=== PATIENT | female | born 1960 | race American Indian/Alaskan Native ===

== ENCOUNTER 2016-12-25 15:09 | Emergency (ER) | payer MEDICARE ==
--- NOTE | 2016-12-25 17:24 | Emergency Department Report ---
Chief Complaint: Psych Stated Complaint: SUICIDAL THOUGHTS/THROAT DRAINAGE Time Seen by Provider: 12/25/16 17:19 - HPI History of Present Illness: PT c/o post nasal drainage, sore throat, and cough x 1 week. PT also reports that she is under a lot of stress right now and she has has suicidal thoughts x 2 days. PT denies active plan. Pt states she has previous Suicide attempt and she is afraid of what she might do. PT states her children and their children have recently moved in. - ROS Review of Systems: - fever + chills + SI - Exam Physical Exam: PT is alert and appropriate but tearful at times hoarse voice noted no acute resp distress MSE screening note: Focused history and physical exam performed. Due to findings the following was ordered: labs, xr, mhe ED Disposition for MSE Condition: Stable
[2016-12-25 17:59] LABS: Basophils % (Auto) 0.8 % (0.0-1.8); Eosinophils % (Auto) 5.8 % (0.0-4.3); Hematocrit 36.3 % (30.3-42.9); Hemoglobin 11.7 gm/dl (10.1-14.3); Mean Corpuscular HGB Conc 32 % (30-34); Mean Corpuscular Hemoglobin 29 pg (28-32); Mean Corpuscular Volume 90 fl (79-97); Platelet Count 206 K/mm3 (140-440); Red Blood Count 4.02 M/mm3 (3.65-5.03); Red Cell Distribution Width 15.6 % (13.2-15.2); White Blood Count 6.3 K/mm3 (4.5-11.0)
[2016-12-25 18:05] LABS: Alanine Aminotransferase 30 units/L (7-56); Albumin 4.3 g/dL (3.9-5); Alkaline Phosphatase 94 units/L (35-129); Anion Gap 20 mmol/L; Blood Urea Nitrogen 10 mg/dL (7-17); Carbon Dioxide 27 mmol/L (22-30); Chloride 101.3 mmol/L (98-107); Glucose 102 mg/dL (65-100); Potassium 4.1 mmol/L (3.6-5.0); Sodium 144 mmol/L (137-145); Total Protein 8.4 g/dL (6.3-8.2)
[2016-12-25 19:23] LABS: Urine Drugs of Abuse Note Disclamer
[2016-12-25 19:52] LABS: Bilirubin,Urine NEG (Negative); Blood,Urine NEG (Negative); Ketones,Urine NEG (Negative); Leukocyte Esterase,Urine TR (Negative); Mucus,Urine 1+ /HPF; Nitrite,Urine NEG (Negative); Protein,Urine <15 mg/dL mg/dL (Negative); RBC,Urine < 1.0 /HPF (0.0-6.0); Urobilinogen,Urine < 2.0 mg/dL (<2.0)
[2016-12-25] MEDS ORDERED: ALUM-MAG HYDROX-SIMETH 200-200-20MG/5ML PO PRN (20:39)
[2016-12-25] MEDS ORDERED: MOTRIN PO PRN (20:39)
[2016-12-25] MEDS ORDERED: ATIVAN IM PRN (20:39)
[2016-12-25] MEDS ORDERED: LIDOCAINE VISCOUS 2% MM PRN (20:39)
[2016-12-25] MEDS ORDERED: TYLENOL PO ONE (20:40)
--- NOTE | 2016-12-25 20:42 | Emergency Department Report ---
ED General Adult HPI - General Chief complaint: Psych Stated complaint: SUICIDAL THOUGHTS/THROAT DRAINAGE Time Seen by Provider: 12/25/16 17:19 Source: patient, RN notes reviewed Mode of arrival: Ambulatory Limitations: No Limitations - History of Present Illness Initial comments: This is a 56-year-old female. She is previously unknown to me. Does not currently have a primary care doctor, and denies chronic medical conditions. The patient presents to the ER with 1 week of sore throat, cough productive of clear mucus, with no severe headache, neck pain, chest pain, abdominal pain or shortness of breath. The patient is able to eat and drink. No recent antibiotic use. No recent sick contacts. The patient also endorses suicidality. She reports many psychosocial stressors. She denies access to guns and firearms. She denies overdoses. She reports that she sees things crawling on her bedroom at night, but otherwise denies audio and visual hallucinations. Patient reports that her suicidality has resolved. -: Gradual Quality: aching Consistency: constant Improves with: rest Worsens with: eating Associated Symptoms: cough. denies: confusion, chest pain, loss of appetite, malaise, shortness of breath, syncope, weakness - Related Data Bad table Allergies Allergy/AdvReac Type Severity Reaction Status Date / Time No Known Allergies Allergy Verified 02/08/14 21:57 ED Review of Systems ROS: Stated complaint: SUICIDAL THOUGHTS/THROAT DRAINAGE Other details as noted in HPI Constitutional: denies: fever, malaise Eyes: denies: vision change ENT: throat pain, congestion Respiratory: cough Cardiovascular: denies: chest pain Gastrointestinal: denies: abdominal pain Genitourinary: denies: dysuria Musculoskeletal: denies: back pain Skin: denies: lesions Neurological: denies: headache, weakness Psychiatric: anxiety, suicidal thoughts. denies: homicidal thoughts ED Past Medical Hx - Past Medical History Previous Medical History?: Yes Hx Arthritis: Yes Hx Psychiatric Treatment: Yes (Anxiety) - Surgical History Past Surgical History?: Yes Additional Surgical History: Hysterectomy, Tubaligation - Social History Smoking Status: Never Smoker Substance Use Type: Alcohol - Medications Bad table ED Physical Exam - General Limitations: No Limitations General appearance: alert, in no apparent distress - Head Head exam: Present: atraumatic, normocephalic - Eye Eye exam: Present: normal appearance, EOMI - ENT ENT exam: Present: normal exam, normal orophraynx, mucous membranes moist, TM's normal bilaterally, normal external ear exam - Neck Neck exam: Present: normal inspection, full ROM, lymphadenopathy. Absent: tenderness, meningismus - Respiratory Respiratory exam: Present: normal lung sounds bilaterally. Absent: respiratory distress, wheezes, rales, rhonchi, stridor, chest wall tenderness, accessory muscle use, decreased breath sounds, prolonged expiratory - Cardiovascular Cardiovascular Exam: Present: regular rate, normal rhythm, normal heart sounds. Absent: bradycardia, tachycardia, irregular rhythm, systolic murmur, diastolic murmur, rubs, gallop - GI/Abdominal GI/Abdominal exam: Present: soft, normal bowel sounds. Absent: distended, tenderness, guarding, rebound, rigid, pulsatile mass - Extremities Exam Extremities exam: Present: normal inspection, full ROM, normal capillary refill. Absent: tenderness, pedal edema, joint swelling, calf tenderness - Back Exam Back exam: Present: normal inspection, full ROM. Absent: tenderness, CVA tenderness (R), CVA tenderness (L), muscle spasm, paraspinal tenderness, vertebral tenderness - Neurological Exam Neurological exam: Present: alert, oriented X3, normal gait, other (Extraocular movements intact. Tongue midline. No facial droop. Facial sensation intact to light touch in the V1, V2, V3 distribution bilaterally. 5 and 5 strength in 4 extremities.. Sensation is intact to light touch in 4 extremities.). Absent : motor sensory deficit - Psychiatric Psychiatric exam: Present: anxious - Skin Skin exam: Present: warm, dry, intact, normal color. Absent: rash ED Course Vital Signs 12/25/16 12/26/16 17:19 00:49 Temperature 99.3 F 98.3 F Pulse Rate 91 H 71 Respiratory 16 16 Rate Blood Pressure 136/99 Blood Pressure 174/104 [Left] O2 Sat by Pulse 100 100 Oximetry ED Medical Decision Making - Lab Data Result diagrams: 12/25/16 17:25 12/25/16 17:25 Vital Signs 12/25/16 17:19 Temperature 99.3 F Pulse Rate 91 H Respiratory 16 Rate Blood Pressure 136/99 O2 Sat by Pulse 100 Oximetry Lab Results 12/25/16 12/25/16 12/25/16 Range/Units 17:25 17:25 17:25 WBC 6.3 (4.5-11.0) K/mm3 RBC 4.02 (3.65-5.03) M/mm3 Hgb 11.7 (10.1-14.3) gm/dl Hct 36.3 (30.3-42.9) % MCV 90 (79-97) fl MCH 29 (28-32) pg MCHC 32 (30-34) % RDW 15.6 H (13.2-15.2) % Plt Count 206 (140-440) K/mm3 Lymph % (Auto) 31.4 (13.4-35.0) % Travis % (Auto) 10.1 H (0.0-7.3) % Eos % (Auto) 5.8 H (0.0-4.3) % Baso % (Auto) 0.8 (0.0-1.8) % Lymph # 2.0 (1.2-5.4) K/mm3 Travis # 0.6 (0.0-0.8) K/mm3 Eos # 0.4 (0.0-0.4) K/mm3 Baso # 0.1 (0.0-0.1) K/mm3 Seg Neutrophils % 51.9 (40.0-70.0) % Seg Neutrophils # 3.3 (1.8-7.7) K/mm3 Sodium (137-145) mmol/L Potassium (3.6-5.0) mmol/L Chloride (98-107) mmol/L Carbon Dioxide (22-30) mmol/L Anion Gap mmol/L BUN (7-17) mg/dL Creatinine (0.7-1.2) mg/dL Estimated GFR ml/min BUN/Creatinine Ratio % Glucose (65-100) mg/dL Calcium (8.4-10.2) mg/dL Total Bilirubin (0.1-1.2) mg/dL AST (5-40) units/L ALT (7-56) units/L Alkaline Phosphatase (35-129) units/L Total Creatine Kinase (30-135) units/L Total Protein (6.3-8.2) g/dL Albumin (3.9-5) g/dL Albumin/Globulin Ratio % Urine Color (Yellow) Urine Turbidity (Clear) Urine pH (5.0-7.0) Ur Specific [place] (1.003-1.030) Urine Protein (Negative) mg/dL Urine Glucose (UA) (Negative) mg/dL Urine Ketones (Negative) mg/dL Urine Blood (Negative) Urine Nitrite (Negative) Urine Bilirubin (Negative) Urine Urobilinogen (<2.0) mg/dL Ur Leukocyte Esterase (Negative) Urine WBC (Auto) (0.0-6.0) /HPF Urine RBC (Auto) (0.0-6.0) /HPF U Epithel Cells (Auto) (0-13.0) /HPF Urine Mucus /HPF Salicylates (2.8-20.0) mg/dL Urine Opiates Screen Urine Methadone Screen Acetaminophen < 15.0 (10.0-30.0) ug/mL Ur Barbiturates Screen Ur Phencyclidine Scrn Ur Amphetamines Screen U Benzodiazepines Scrn Urine Cocaine Screen U Marijuana (THC) Screen Drugs of Abuse Note Plasma/Serum Alcohol 0.13 H (0-0.07) gm% 12/25/16 12/25/16 12/25/16 Range/Units 17:25 17:26 17:26 WBC (4.5-11.0) K/mm3 RBC (3.65-5.03) M/mm3 Hgb (10.1-14.3) gm/dl Hct (30.3-42.9) % MCV (79-97) fl MCH (28-32) pg MCHC (30-34) % RDW (13.2-15.2) % Plt Count (140-440) K/mm3 Lymph % (Auto) (13.4-35.0) % Travis % (Auto) (0.0-7.3) % Eos % (Auto) (0.0-4.3) % Baso % (Auto) (0.0-1.8) % Lymph # (1.2-5.4) K/mm3 Travis # (0.0-0.8) K/mm3 Eos # (0.0-0.4) K/mm3 Baso # (0.0-0.1) K/mm3 Seg Neutrophils % (40.0-70.0) % Seg Neutrophils # (1.8-7.7) K/mm3 Sodium 144 (137-145) mmol/L Potassium 4.1 (3.6-5.0) mmol/L Chloride 101.3 (98-107) mmol/L Carbon Dioxide 27 (22-30) mmol/L Anion Gap 20 mmol/L BUN 10 (7-17) mg/dL Creatinine 0.8 (0.7-1.2) mg/dL Estimated GFR > 60 ml/min BUN/Creatinine Ratio 12.50 % Glucose 102 H (65-100) mg/dL Calcium 9.0 (8.4-10.2) mg/dL Total Bilirubin 0.50 (0.1-1.2) mg/dL AST 94 H (5-40) units/L ALT 30 (7-56) units/L Alkaline Phosphatase 94 (35-129) units/L Total Creatine Kinase 253 H (30-135) units/L Total Protein 8.4 H (6.3-8.2) g/dL Albumin 4.3 (3.9-5) g/dL Albumin/Globulin Ratio 1.0 % Urine Color (Yellow) Urine Turbidity (Clear) Urine pH (5.0-7.0) Ur Specific [place] (1.003-1.030) Urine Protein (Negative) mg/dL Urine Glucose (UA) (Negative) mg/dL Urine Ketones (Negative) mg/dL Urine Blood (Negative) Urine Nitrite (Negative) Urine Bilirubin (Negative) Urine Urobilinogen (<2.0) mg/dL Ur Leukocyte Esterase (Negative) Urine WBC (Auto) (0.0-6.0) /HPF Urine RBC (Auto) (0.0-6.0) /HPF U Epithel Cells (Auto) (0-13.0) /HPF Urine Mucus /HPF Salicylates < 0.3 L (2.8-20.0) mg/dL Urine Opiates Screen Urine Methadone Screen Acetaminophen (10.0-30.0) ug/mL Ur Barbiturates Screen Ur Phencyclidine Scrn Ur Amphetamines Screen U Benzodiazepines Scrn Urine Cocaine Screen U Marijuana (THC) Screen Drugs of Abuse Note Plasma/Serum Alcohol (0-0.07) gm% 12/25/16 12/25/16 Range/Units 19:15 19:15 WBC (4.5-11.0) K/mm3 RBC (3.65-5.03) M/mm3 Hgb (10.1-14.3) gm/dl Hct (30.3-42.9) % MCV (79-97) fl MCH (28-32) pg MCHC (30-34) % RDW (13.2-15.2) % Plt Count (140-440) K/mm3 Lymph % (Auto) (13.4-35.0) % Travis % (Auto) (0.0-7.3) % Eos % (Auto) (0.0-4.3) % Baso % (Auto) (0.0-1.8) % Lymph # (1.2-5.4) K/mm3 Travis # (0.0-0.8) K/mm3 Eos # (0.0-0.4) K/mm3 Baso # (0.0-0.1) K/mm3 Seg Neutrophils % (40.0-70.0) % Seg Neutrophils # (1.8-7.7) K/mm3 Sodium (137-145) mmol/L Potassium (3.6-5.0) mmol/L Chloride (98-107) mmol/L Carbon Dioxide (22-30) mmol/L Anion Gap mmol/L BUN (7-17) mg/dL Creatinine (0.7-1.2) mg/dL Estimated GFR ml/min BUN/Creatinine Ratio % Glucose (65-100) mg/dL Calcium (8.4-10.2) mg/dL Total Bilirubin (0.1-1.2) mg/dL AST (5-40) units/L ALT (7-56) units/L Alkaline Phosphatase (35-129) units/L Total Creatine Kinase (30-135) units/L Total Protein (6.3-8.2) g/dL Albumin (3.9-5) g/dL Albumin/Globulin Ratio % Urine Color Yellow (Yellow) Urine Turbidity Clear (Clear) Urine pH 5.0 (5.0-7.0) Ur Specific [place] 1.019 (1.003-1.030) Urine Protein <15 mg/dl (Negative) mg/dL Urine Glucose (UA) Neg (Negative) mg/dL Urine Ketones Neg (Negative) mg/dL Urine Blood Neg (Negative) Urine Nitrite Neg (Negative) Urine Bilirubin Neg (Negative) Urine Urobilinogen < 2.0 (<2.0) mg/dL Ur Leukocyte Esterase Tr (Negative) Urine WBC (Auto) 2.0 (0.0-6.0) /HPF Urine RBC (Auto) < 1.0 (0.0-6.0) /HPF U Epithel Cells (Auto) 4.0 (0-13.0) /HPF Urine Mucus 1+ /HPF Salicylates (2.8-20.0) mg/dL Urine Opiates Screen Presumptive negative Urine Methadone Screen Presumptive negative Acetaminophen (10.0-30.0) ug/mL Ur Barbiturates Screen Presumptive negative Ur Phencyclidine Scrn Presumptive negative Ur Amphetamines Screen Presumptive negative U Benzodiazepines Scrn Presumptive negative Urine Cocaine Screen Presumptive negative U Marijuana (THC) Screen Presumptive negative Drugs of Abuse Note Disclamer Plasma/Serum Alcohol (0-0.07) gm% - Radiology Data Radiology results: image reviewed interpreted by me: X-ray of the chest is negative for acute disease - Medical Decision Making Differential diagnosis: Suicidality, mood disorder, bronchitis, pharyngitis Assessment and plan: 56-year-old female with 2 complaints. In terms of her pharyngitis complaining, she is afebrile with essentially reassuring vital signs and speaking in full sentences. She does not have a fever, she has a cough, she has lymphadenopathy, and there are no exudates. Patient low risk by Centor score, most likely has a viral syndrome, chest x-ray negative, no utility in testing for strep. Patient is alert and oriented, clinically sober at this time, with a GCS of 15, and an NIH score of 0. She is not clinically intoxicated at this time. Given her endorsement of suicidality, she is placed on a 1013. Elevated blood pressure is appreciated, this is most likely secondary to anxiety, and is most likely situational. As for the [employer] clinical policy on asymptomatic hypertension: Critical Questions 1. Are ED blood pressure readings accurate and reliable for screening asymptomatic patients for hypertension? Level A recommendations. None specified. Level B recommendations. If blood pressure measurements are persistently elevated with a systolic blood pressure greater than 140 mm Hg or diastolic blood pressure greater than 90 mm Hg, the patient should be referred for follow- up of possible hypertension and blood pressure management. Level C recommendations. Patients with a single elevated blood pressure reading may require further screening for hypertension in the outpatient setting. 2. Do asymptomatic patients with elevated blood pressures benefit from rapid lowering of their blood pressure? Level A recommendations. None specified. Level B recommendations. (1) Initiating treatment for asymptomatic hypertension in the ED is not necessary when patients have follow-up; (2) Rapidly lowering blood pressure in asymptomatic patients in the ED is unnecessary and may be harmful in some patients; (3) When ED treatment for asymptomatic hypertension is initiated, blood pressure management should attempt to gradually lower blood pressure and should not be expected to be normalized during the initial ED visit. Level C recommendations. None specified. At this point in time, there is no immediate medical contraindication to psychiatric admission/evaluation and consultation. Crisis team has been informed. Critical care attestation.: If time is entered above; I have spent that time in minutes in the direct care of this critically ill patient, excluding procedure time. ED Disposition Clinical Impression: Viral syndrome, Mood disorder Disposition: DC/TX-65 PSY HOSP/PSY UNIT Is pt being admited?: No Does the pt Need Aspirin: No Condition: Stable Referrals: JAMSHID DELEON MD [Primary Care Provider] - 3-5 Days
--- NOTE | 2016-12-26 09:33 | XRay Report ---
Chest 2 views. History: Cough. Findings: The heart and pulmonary vessels are normal. The lungs are clear. No pleural fluid is seen. Impression: Negative study.
[2016-12-26 10:35] VITALS: BP 177/96
--- NOTE | 2016-12-26 13:18 | Consultation ---
History of Present Illness - Reason for Consult Consult date: 12/26/16 Reason for consult: Mental Health Evaluation Requesting physician: RITIKA RAUSCH - Chief Complaint Chief complaint: "I was under stress" - History of Present Psychiatric Illness 56 y.o. AA female patient presents to the ER with 1 week of sore throat, cough, and suicidal thoughts. Today patient is calm and cooperative during the assessment. She stated that the suicidal thoughts has been active for a weeks. She stated being stressed out by her daughter who moved into her home. She stated that her daughter is not responsible and that has caused issues between them. The family dynamic issues between them have caused the patient to think about suicide. She stated having a similar issue reference stress/suicide in 2004 and she was hospitalized at [facility]. She reported that she took Paxil and Zoloft yrs ago for depression. She stated feeling unmotivated and lack energy to get her day started. She rate her depression 7/10, with 10 being the worse. She denies SI/HI's and AVH's. She denies recreational drug use. Patient's alcohol serum 0.13. She stated, "I drink to much last night because I was stressed." She stated that she normally don't consume a lot of alcohol (etoh ). Medications and Allergies Allergies Allergy/AdvReac Type Severity Reaction Status Date / Time No Known Allergies Allergy Verified 02/08/14 21:57 Bad table Past psychiatric history - Past Medical History Past Medical History: other (hysterectomy) Past Surgical History: Other (Tubal Ligation) - past Psychiatric treatment and history Psych: Depression psychiatric treatment history: Inpatient Psy setting in 2004 at [facility]. Denies a fam psy hx. - Social History Social history: lives with family (HS graduate with some college) Mental Status Exam - Vital signs Last Vital Signs Temp 98.6 F 12/26/16 08:23 Pulse 68 12/26/16 10:00 Resp 18 12/26/16 10:00 BP 177/96 12/26/16 10:00 Pulse Ox 100 12/26/16 10:00 - Exam Narrative exam: ROS: (+) depression MSE: Appearance: calm, cooperative Behavior: regular eye contact Speech: regular rate and tone Mood: "I don't know" Affect: labile Thought Process: linear Thought Content: denies SI/HI's and AVH's Motor Activity: sitting up in bed Cognition: A/Ox 3 Insight: fair Judgment: fair Results Result Diagrams: 12/25/16 17:25 12/25/16 17:25 Abnormal lab results 12/25/16 12/25/16 12/25/16 Range/Units 17:25 17:25 17:25 RDW 15.6 H (13.2-15.2) % Miller % (Auto) 10.1 H (0.0-7.3) % Eos % (Auto) 5.8 H (0.0-4.3) % Glucose 102 H (65-100) mg/dL AST 94 H (5-40) units/L Total Creatine Kinase (30-135) units/L Total Protein 8.4 H (6.3-8.2) g/dL Salicylates (2.8-20.0) mg/dL Plasma/Serum Alcohol 0.13 H (0-0.07) gm% 12/25/16 12/25/16 Range/Units 17:26 17:26 RDW (13.2-15.2) % Miller % (Auto) (0.0-7.3) % Eos % (Auto) (0.0-4.3) % Glucose (65-100) mg/dL AST (5-40) units/L Total Creatine Kinase 253 H (30-135) units/L Total Protein (6.3-8.2) g/dL Salicylates < 0.3 L (2.8-20.0) mg/dL Plasma/Serum Alcohol (0-0.07) gm% All other labs normal. Assessment and Plan Assessment and plan: Impression: Historical Dx: Depression. Possible Alcohol Use DO. Today patient is calm and cooperative during the assessment. Maladaptive coping. Alcohol serum 0.13. Family Dynamics issues. DDx: R/O Bipolar Recommendation/Plan: Continue 1013 with placement to [facility].
== END 2016-12-26 10:44 ==
LOC: EEVIPCON 15:09 → ED 15:09
DX: F39 Unspecified mood [affective] disorder (principal); B34.9 Viral infection, unspecified; M19.90 Unspecified osteoarthritis, unspecified site; F41.9 Anxiety disorder, unspecified
CPT/HCPCS: 36415; 71020; 80053; 80307; 81001; 82550; 85025; 99285; G0480; 80320

== ENCOUNTER 2017-06-12 23:45 | Emergency (ER) | payer MEDICARE ==
[2017-06-13 00:53] VITALS: BP 131/93
[2017-06-13 02:11] LABS: Hematocrit 40.4 % (30.3-42.9); Hemoglobin 13.4 gm/dl (10.1-14.3); Mean Corpuscular HGB Conc 33 % (30-34); Mean Corpuscular Hemoglobin 30 pg (28-32); Mean Corpuscular Volume 90 fl (79-97); Platelet Count 263 K/mm3 (140-440); Red Blood Count 4.47 M/mm3 (3.65-5.03); Red Cell Distribution Width 15.1 % (13.2-15.2)
[2017-06-13 02:15] LABS: Alanine Aminotransferase 27 units/L (7-56); Albumin 4.3 g/dL (3.9-5); BUN/Creatinine Ratio 14; Blood Urea Nitrogen 14 mg/dL (7-17); Calcium 9.2 mg/dL (8.4-10.2); Hemolysis Index 13
[2017-06-13 03:32] LABS: Total Cells Counted 100
[2017-06-13 03:33] LABS: Large Platelets Few; Platelet Estimate Consistent w Auto
[2017-06-13 05:42] LABS: Bilirubin,Urine NEG (Negative); Blood,Urine NEG (Negative); Color,Urine Yellow (Yellow); Mucus,Urine FEW /HPF; Nitrite,Urine NEG (Negative); Protein,Urine <15 mg/dL mg/dL (Negative); Urobilinogen,Urine < 2.0 mg/dL (<2.0)
== END 2017-06-13 17:13 | disposition left against medical advice (07) ==
LOC: ED 23:45
DX: R10.9 Unspecified abdominal pain (principal); Z53.21 Procedure and treatment not carried out due to patient leaving prior to being seen by health care provider
CPT/HCPCS: 36415; 80053; 81001; 85007; 85025

== ENCOUNTER 2017-06-27 16:41 | Emergency (ER) | payer MEDICARE ==
[2017-06-27 17:46] LABS: Basophils % (Auto) 0.8 % (0.0-1.8); Hematocrit 39.5 % (30.3-42.9); Hemoglobin 13.2 gm/dl (10.1-14.3); Lymphocytes # (Auto) 1.5 K/mm3 (1.2-5.4); Lymphocytes % (Auto) 24.2 % (13.4-35.0); Mean Corpuscular HGB Conc 34 % (30-34); Mean Corpuscular Hemoglobin 30 pg (28-32); Mean Corpuscular Volume 88 fl (79-97); Monocytes # (Auto) 0.9 K/mm3 (0.0-0.8); Monocytes % (Auto) 14.6 % (0.0-7.3); Platelet Count 158 K/mm3 (140-440); Red Blood Count 4.48 M/mm3 (3.65-5.03); Red Cell Distribution Width 14.6 % (13.2-15.2)
--- NOTE | 2017-06-27 18:04 | XRay Report ---
FINAL REPORT EXAM: XR CHEST ROUTINE 2V HISTORY: Shortness of breath TECHNIQUE: Two view chest PA and lateral PRIORS: None. FINDINGS: Cardiac and mediastinal contours are unremarkable. No focal pulmonary infiltrate is identified. No pleural fluid collection seen. Pulmonary vasculature is unremarkable. IMPRESSION: Negative two-view chest
[2017-06-27 18:07] LABS: Alanine Aminotransferase 23 units/L (7-56); Albumin 4.5 g/dL (3.9-5); BUN/Creatinine Ratio 9; Blood Urea Nitrogen 10 mg/dL (7-17); Calcium 9.1 mg/dL (8.4-10.2); Hemolysis Index 6
[2017-06-27] MEDS ORDERED: NACL 0.9% 1000 ML 1,000 ML IV ONE ×2 (18:50→21:14)
[2017-06-27] MEDS ORDERED: TYLENOL PO ONE (18:50)
[2017-06-27] MEDS ORDERED: TORADOL IV ONE (18:53)
--- NOTE | 2017-06-27 19:01 | Emergency Department Report ---
HPI - General Chief Complaint: Dyspnea/Respdistress Time Seen by Provider: 06/27/17 18:41 - HPI HPI: Room 17 The patient is a 57-year-old female presenting with a chief complaint cough and sore throat. The patient states for approximately one week she has had flulike symptoms which includes cough productive of green sputum, headache, body aches abdominal pain and chest pain with coughing. Patient also admits to sore throat and chills. Patient states her symptoms worsened last night. Patient denies a history of fever at home. Location: [See above] Duration: [See above] Quality: Pain Severity: Moderate Modifying factors: [see above] Context: [see above] Mode of transportation: The patient drove herself to the emergency department and there are no visitors present ED Past Medical Hx - Past Medical History Previous Medical History?: Yes Hx Arthritis: Yes Hx Psychiatric Treatment: Yes (Anxiety, bipolar, depression) - Surgical History Past Surgical History?: Yes Additional Surgical History: Hysterectomy, Tubaligation - Family History Family history: no significant - Social History Smoking Status: Never Smoker Substance Use Type: None (denies illicit drug use), Alcohol (occasional) - Medications Bad table ED Review of Systems ROS: Stated complaint: COUGH/SORE THROAT Other details as noted in HPI Constitutional: chills. denies: fever ENT: throat pain Respiratory: cough Gastrointestinal: abdominal pain Musculoskeletal: myalgia Neurological: headache Physical Exam - Physical Exam Vital Signs: Vital Signs 06/27/17 06/27/17 06/27/17 16:58 18:15 18:17 Temperature 99.8 F H 100.2 F H Pulse Rate 138 H 121 H Respiratory 20 17 18 Rate Blood Pressure 158/102 Blood Pressure 147/74 [Right] O2 Sat by Pulse 98 98 98 Oximetry Physical Exam: GENERAL: The patient is well-developed well-nourished female lying on stretcher appearing to be in mild discomfort. [] HEENT: Normocephalic. Atraumatic. Extraocular motions are intact. Patient has moist mucous membranes. No exudate seen in the oropharynx NECK: Supple. No meningitic signs are noted. Trachea midline CHEST/LUNGS: Clear to auscultation. There is no respiratory distress noted. HEART/CARDIOVASCULAR: Regular. There is tachycardia. There is no gallop rub or murmur. ABDOMEN: Abdomen is soft, nontender. Patient has normal bowel sounds. There is no abdominal distention. SKIN: There is no rash. There is no edema. There is no diaphoresis. NEURO: The patient is awake, alert, and oriented. The patient is cooperative. The patient has normal speech MUSCULOSKELETAL: There is no evidence of acute injury. ED Course Vital Signs 06/27/17 06/27/17 06/27/17 16:58 18:15 18:17 Temperature 99.8 F H 100.2 F H Pulse Rate 138 H 121 H Respiratory 20 17 18 Rate Blood Pressure 158/102 Blood Pressure 147/74 [Right] O2 Sat by Pulse 98 98 98 Oximetry ED Medical Decision Making - Lab Data Result diagrams: 06/27/17 17:06 06/27/17 17:06 - EKG Data -: EKG Interpreted by Me EKG shows normal: sinus rhythm Rate: tachycardia (128 bpm) - EKG Data When compared to previous EKG there are: previous EKG unavailable Interpretation: other (no ischemic changes seen) - Radiology Data Radiology results: report reviewed (chest x-ray), image reviewed (chest x-ray) FINAL REPORT EXAM: XR CHEST ROUTINE 2V HISTORY: Shortness of breath TECHNIQUE: Two view chest PA and lateral PRIORS: None. FINDINGS: Cardiac and mediastinal contours are unremarkable. No focal pulmonary infiltrate is identified. No pleural fluid collection seen. Pulmonary vasculature is unremarkable. IMPRESSION: Negative two-view chest Transcribed By: CA Dictated By: JOVANI HILTON MD Electronically Authenticated By: JOVANI HILTON MD Signed Date/Time: 06/27/17 1400 DD/ 1400 TD/TT: 06/27/17 1400 - Medical Decision Making [facility] and not allow me to interpret prescriptions on the patient's chart. Subsequently the patient was given a handwritten prescription for amoxicillin 875 mg #14 one by mouth twice a day 7 days, Tessalon Perles 100 mg #30 one by mouth 3 times a day when necessary cough , [place] 5/325#14 1-2 by mouth every 4-6 hours when necessary pain and ibuprofen 800 mg #20 one by mouth every 8 hours when necessary pain with 0 refills. - Differential Diagnosis influenza, pneumonia, pharyngitis, Critical care attestation.: If time is entered above; I have spent that time in minutes in the direct care of this critically ill patient, excluding procedure time. ED Disposition Clinical Impression: URI (upper respiratory infection), Pharyngitis Disposition: - TO HOME OR SELFCARE Is pt being admited?: No Does the pt Need Aspirin: No Condition: Stable Instructions: Pharyngitis (ED) Additional Instructions: Return to the emergency department immediately should you develop worsening symptoms, fever, inability to tolerate food or liquid or any other concerns. Referrals: YAJAIRA KAPADIA MD [Staff Physician] - 3-5 Days Time of Disposition: 22:05
--- NOTE | 2017-06-27 21:31 | XRay Report ---
FINAL REPORT EXAM: XR NECK SOFT TISSUE TECHNIQUE: Soft tissue neck two views PRIORS: None. FINDINGS: Prevertebral soft tissues are unremarkable. No evidence for epiglottic enlargement. No evidence for pharyngeal distention. Upper trachea demonstrates normal contour. Noted are degenerative changes cervical spine C4-C5-C5-C6 with small anterior osteophytes IMPRESSION: Degenerative changes mid to lower cervical spine Otherwise negative soft tissue neck HISTORY: sore throat
[2017-06-27 22:23] VITALS: BP 149/87
[2017-06-27 22:27] LABS: Bacteria,Urine 1+ /HPF (Negative); Bilirubin,Urine NEG (Negative); Blood,Urine SM (Negative); Color,Urine Yellow (Yellow); Mucus,Urine FEW /HPF; Nitrite,Urine NEG (Negative); Protein,Urine <15 mg/dL mg/dL (Negative); Urobilinogen,Urine < 2.0 mg/dL (<2.0)
[2017-06-27] MEDS ORDERED: SUBLIMAZE IV ONE (22:45)
[2017-06-27] MEDS ORDERED: ZOFRAN IV ONE (22:45)
== END 2017-06-27 23:03 | disposition home or self-care (01) ==
LOC: ED 16:41
DX: J06.9 Acute upper respiratory infection, unspecified (principal)
CPT/HCPCS: 36415; 70360; 71046; 80053; 81001; 84484; 85025; 87400; 93005; 93010; 96361; 96374; 96375; 99284; J1885; J2405; J3010; J7030

== ENCOUNTER 2019-07-30 04:01 | Emergency (ER) | payer MEDICARE ==
[2019-07-30] MEDS ORDERED: ASPIRIN 325 MG TAB PO ONE (04:09)
--- NOTE | 2019-07-30 05:02 | XRay Report ---
CHEST 1 VIEW INDICATION / CLINICAL INFORMATION: Chest Pain. COMPARISON: 12/25/2016 FINDINGS: SUPPORT DEVICES: None. HEART / MEDIASTINUM: No significant abnormality. LUNGS / PLEURA: There is mild bibasilar atelectasis. The lungs are otherwise clear. No pneumothorax. ADDITIONAL FINDINGS: No significant additional findings. IMPRESSION: 1. Mild bibasilar atelectasis. Signer Name: Dee Dee Martin MD Signed: 07/30/2019 4:57 AM Workstation Name: [employer]
[2019-07-30 05:04] LABS: Basophils # (Auto) 0.1 K/mm3 (0.0-0.1); Basophils % (Auto) 1.3 % (0.0-1.8); Eosinophils # (Auto) 0.3 K/mm3 (0.0-0.4); Eosinophils % (Auto) 5.1 % (0.0-4.3); Hematocrit 40.3 % (30.3-42.9); Hemoglobin 13.2 gm/dl (10.1-14.3); Lymphocytes # (Auto) 2.4 K/mm3 (1.2-5.4); Mean Corpuscular HGB Conc 33 % (30-34); Mean Corpuscular Volume 90 fl (79-97); Monocytes # (Auto) 0.8 K/mm3 (0.0-0.8); Red Blood Count 4.49 M/mm3 (3.65-5.03); Red Cell Distribution Width 14.5 % (13.2-15.2)
[2019-07-30 05:13] LABS: Platelet Count 218 K/mm3 (140-440)
[2019-07-30 05:17] LABS: BUN/Creatinine Ratio 8; Blood Urea Nitrogen 8 mg/dL (7-17); Calcium 9.9 mg/dL (8.4-10.2); Hemolysis Index 4
[2019-07-30] MEDS ORDERED: KETOROLAC 30 MG/1 ML INJ IM ONE (08:28)
[2019-07-30 08:45] VITALS: BP 139/86
--- NOTE | 2019-07-30 08:59 | Emergency Department Report ---
ED Chest Pain HPI - General Chief Complaint: Chest Pain Stated Complaint: CHEST PAIN BACK PAIN Time Seen by Provider: 07/30/19 08:20 Source: patient Mode of arrival: Ambulatory Limitations: No Limitations - History of Present Illness Initial Comments: This is a very pleasant 59-year-old female who presents the emergency department the chief complaint of right-sided upper back pain that radiates around to the right side of her chest. Patient reports this started yesterday. She reports that initially started with some aching in her back followed by some shortness of breath and then the pain intensified to sharp pain radiating around to the front. She has a past medical history of anxiety, bipolar and depression. She has a past surgical history of hysterectomy and a tubal ligation. She has been told in the past she has a been hypertensive and has hyperlipidemia. She denies a history of diabetes and denies any smoking history. She reports a family history of her sister having heart problems but no history of coronary artery disease in her sister or any other family members. She states the pain in her back and chest is aggravated by movement, lifting the right arm and deep breaths. She denies any recent travel or immobilizations, she denies any exogenous estrogen use. She denies any associated cough, fever, chills, nausea, vomiting, diarrhea, headache, dizziness, blurry vision or any other associated symptoms. Severity scale (0 -10): 5 - Related Data Bad table Allergies Allergy/AdvReac Type Severity Reaction Status Date / Time No Known Allergies Allergy Verified 02/08/14 21:57 Heart Score - HEART Score History: Slightly suspicious EKG: Non-specific Age: 45-65 Risk factors: 1-2 risk factors Troponin: < normal limit HEART Score: 3 ED Review of Systems ROS: Stated complaint: CHEST PAIN BACK PAIN Other details as noted in HPI Comment: All other systems reviewed and negative Constitutional: denies: chills, fever Eyes: denies: eye pain, eye discharge, vision change ENT: denies: ear pain, throat pain Respiratory: see HPI, shortness of breath. denies: cough, wheezing Cardiovascular: as per HPI, chest pain. denies: palpitations Endocrine: no symptoms reported Gastrointestinal: denies: abdominal pain, nausea, diarrhea Genitourinary: denies: urgency, dysuria, discharge Musculoskeletal: denies: back pain, joint swelling, arthralgia Skin: denies: rash, lesions Neurological: denies: headache, weakness, paresthesias Psychiatric: denies: anxiety, depression Hematological/Lymphatic: denies: easy bleeding, easy bruising ED Past Medical Hx - Past Medical History Previous Medical History?: Yes Hx Arthritis: Yes Hx Psychiatric Treatment: Yes (Anxiety, bipolar, depression) - Surgical History Past Surgical History?: Yes Additional Surgical History: Hysterectomy, Tubaligation - Family History Family history: no significant - Social History Smoking Status: Never Smoker Substance Use Type: Alcohol - Medications Bad table ED Physical Exam - General Limitations: No Limitations General appearance: alert, in no apparent distress - Head Head exam: Present: atraumatic, normocephalic - Eye Eye exam: Present: normal appearance, PERRL, EOMI Pupils: Present: normal accommodation - ENT ENT exam: Present: normal exam, normal orophraynx, mucous membranes moist - Neck Neck exam: Present: normal inspection, full ROM. Absent: tenderness, meningismus - Respiratory Respiratory exam: Present: normal lung sounds bilaterally, wheezes (Mild bilateral expiratory wheezes, no increased work of breathing, no retractions), chest wall tenderness (Tenderness to palpation over the right side of the chest wall and right upper back). Absent: respiratory distress, rales, rhonchi, stridor - Cardiovascular Cardiovascular Exam: Present: regular rate, normal rhythm, normal heart sounds. Absent: systolic murmur, diastolic murmur, rubs, gallop - GI/Abdominal GI/Abdominal exam: Present: soft, normal bowel sounds, other (Negative Martin sign). Absent: distended, tenderness, guarding, rebound - Extremities Exam Extremities exam: Present: normal inspection, full ROM, normal capillary refill. Absent: tenderness, calf tenderness (No posterior calf tenderness, no palpable cords, negative Homans sign bilaterally.) - Back Exam Back exam: Present: normal inspection, full ROM, other (Tenderness palpation over the left upper back in the scapular region). Absent: tenderness, CVA tenderness (R), CVA tenderness (L) - Neurological Exam Neurological exam: Present: alert, oriented X3, CN II-XII intact, normal gait - Psychiatric Psychiatric exam: Present: normal affect, normal mood - Skin Skin exam: Present: warm, dry, intact, normal color. Absent: rash ED Course Vital Signs 07/30/19 07/30/19 04:13 08:44 Temperature 99.3 F Pulse Rate 112 H 113 H Respiratory 18 17 Rate Blood Pressure 148/100 Blood Pressure 139/86 [Right] O2 Sat by Pulse 100 100 Oximetry - Reevaluation(s) Reevaluation #1: 07/30/19 09:52 On reevaluation the patient is feeling better. Tachycardia has resolved blood pressure is normal. Lungs are clear. She still has some mild reproducible right upper back pain. D-dimer was negative, EKG is normal and troponin x2 are negative. VIKAS score - Vikas Score Age > 65: (0) No Aspirin use within the Past 7 Days: (0) No 3 or more CAD Risk Factors: (0) No 2 or more Angina events in past 24 hrs: (0) No Known CAD with more than 50% Stenosis: (0) No Elevated Cardiac Markers: (0) No ST Deviation Greater than 0.5mm: (0) No VIKAS Score: 0 ED Medical Decision Making - Lab Data Result diagrams: 07/30/19 04:24 07/30/19 04:24 Lab Results 07/30/19 07/30/19 07/30/19 Range/Units 04:24 04:24 07:08 WBC 6.3 (4.5-11.0) K/mm3 RBC 4.49 (3.65-5.03) M/mm3 Hgb 13.2 (10.1-14.3) gm/dl Hct 40.3 (30.3-42.9) % MCV 90 (79-97) fl MCH 29 (28-32) pg MCHC 33 (30-34) % RDW 14.5 (13.2-15.2) % Plt Count 218 (140-440) K/mm3 Lymph % (Auto) 38.0 H (13.4-35.0) % Park % (Auto) 13.0 H (0.0-7.3) % Eos % (Auto) 5.1 H (0.0-4.3) % Baso % (Auto) 1.3 (0.0-1.8) % Lymph # 2.4 (1.2-5.4) K/mm3 Park # 0.8 (0.0-0.8) K/mm3 Eos # 0.3 (0.0-0.4) K/mm3 Baso # 0.1 (0.0-0.1) K/mm3 Seg Neutrophils % 42.6 (40.0-70.0) % Seg Neutrophils # 2.7 (1.8-7.7) K/mm3 D-Dimer (0-234) ng/mlDDU Sodium 137 (137-145) mmol/L Potassium 4.4 (3.6-5.0) mmol/L Chloride 96.2 L (98-107) mmol/L Carbon Dioxide 27 (22-30) mmol/L Anion Gap 18 mmol/L BUN 8 (7-17) mg/dL Creatinine 1.0 (0.7-1.2) mg/dL Estimated GFR > 60 ml/min BUN/Creatinine Ratio 8 % Glucose 112 H (65-100) mg/dL Calcium 9.9 (8.4-10.2) mg/dL Troponin T < 0.010 < 0.010 (0.00-0.029) ng/mL 07/30/19 Range/Units 08:37 WBC (4.5-11.0) K/mm3 RBC (3.65-5.03) M/mm3 Hgb (10.1-14.3) gm/dl Hct (30.3-42.9) % MCV (79-97) fl MCH (28-32) pg MCHC (30-34) % RDW (13.2-15.2) % Plt Count (140-440) K/mm3 Lymph % (Auto) (13.4-35.0) % Park % (Auto) (0.0-7.3) % Eos % (Auto) (0.0-4.3) % Baso % (Auto) (0.0-1.8) % Lymph # (1.2-5.4) K/mm3 Park # (0.0-0.8) K/mm3 Eos # (0.0-0.4) K/mm3 Baso # (0.0-0.1) K/mm3 Seg Neutrophils % (40.0-70.0) % Seg Neutrophils # (1.8-7.7) K/mm3 D-Dimer 205.27 (0-234) ng/mlDDU Sodium (137-145) mmol/L Potassium (3.6-5.0) mmol/L Chloride (98-107) mmol/L Carbon Dioxide (22-30) mmol/L Anion Gap mmol/L BUN (7-17) mg/dL Creatinine (0.7-1.2) mg/dL Estimated GFR ml/min BUN/Creatinine Ratio % Glucose (65-100) mg/dL Calcium (8.4-10.2) mg/dL Troponin T (0.00-0.029) ng/mL - EKG Data -: EKG Interpreted by Me EKG shows normal: sinus rhythm Rate: normal - EKG Data When compared to previous EKG there are: other (No change from 06/27/2017) Interpretation: no acute changes 07/30/19 09:01 sinus tachycardia, rate of 113, No acute ST or T wave abnormalities, no STEMI, normal axis, normal intervals, no ectopy 07/30/19 09:04 - Radiology Data Radiology results: report reviewed, image reviewed [address] [address] XRay Report Signed Patient: SOPHY BUSCH MR#: [id number] : 1960 Acct:[id number] Age/Sex: 59 / F ADM Date: 07/30/19 Loc: ED Attending Dr: Ordering Physician: ED MD REAL Date of Service: 07/30/19 Procedure(s): XR chest 1V ap Accession Number(s): [id number] cc: ED DOCMD Fluoro Time In Minutes: CHEST 1 VIEW INDICATION / CLINICAL INFORMATION: Chest Pain. COMPARISON: 12/25/2016 FINDINGS: SUPPORT DEVICES: None. HEART / MEDIASTINUM: No significant abnormality. LUNGS / PLEURA: There is mild bibasilar atelectasis. The lungs are otherwise clear. No pneumothorax. ADDITIONAL FINDINGS: No significant additional findings. IMPRESSION: 1. Mild bibasilar atelectasis. Signer Name: Dee Dee Martin MD Signed: 07/30/2019 4:57 AM Workstation Name: [id number] Transcribed By: Dictated By: Dee Dee Martin MD Electronically Authenticated By: Dee Dee Martin MD Signed Date/Time: 07/30/19 0457 - Medical Decision Making Patient presented with right back and right-sided chest pain that was reproducible upon palpation. EKG shows no ischemic changes and troponin was negative x2. Heart score was a 3 making patient a low risk for cardiac event in the next 6 weeks. I will refer the patient to cardiology due to her history of elevated blood pressure and high cholesterol as well as age. She agreed this plan. I did consider pulmonary embolism due to her tachycardia and pain with breathing although her oxygen levels 100%. D-dimer was ordered due to her low risk with no recent surgeries, immobilizations and no exogenous estrogen use. D-dimer was negative making her low risk for PE at this time. Did consider pneumonia and pneumothorax however there is no evidence of this on x-ray. To consider aortic dissection however the patient had no tearing or ripping pain to her back, no widening of the mediastinum, she had normal equal radial pulses bi laterally. I suspect the patient's pain is more musculoskeletal due to her pain when she lifts her arm as well as reproducible pain on the upper back and right side of her chest wall. Recommended cardiac follow-up and primary care follow- up and we will treat the patient's pain. She did have some mild wheezing on exam and there was some mild faint bibasilar atelectasis which we will treat with an albuterol inhaler. Recommended the patient return the emergency department any changing or worsening symptoms. She verbalized understanding of the diagnosis, treatment plan and follow-up instructions and all of her questions were answered. - Differential Diagnosis PE, ACS, aortic dissection, pneumonia, pneumothorax Critical care attestation.: If time is entered above; I have spent that time in minutes in the direct care of this critically ill patient, excluding procedure time. ED Disposition Clinical Impression: Nonspecific chest pain Disposition: TO HOME OR SELFCARE Is pt being admited?: No Does the pt Need Aspirin: No Condition: Stable Instructions: Chest Pain (ED) Referrals: MARLINE MIRZA MD [Primary Care Provider] - 3-5 Days DELORES BRUCE MD [Staff Physician] - 3-5 Days Time of Disposition: 10:04
== END 2019-07-30 10:26 | disposition home or self-care (01) ==
LOC: ED 04:01
DX: R07.9 Chest pain, unspecified (principal); M19.90 Unspecified osteoarthritis, unspecified site; F41.9 Anxiety disorder, unspecified; F31.9 Bipolar disorder, unspecified; Z90.710 Acquired absence of both cervix and uterus; Z98.51 Tubal ligation status
CPT/HCPCS: 36415; 71045; 80048; 84484; 85025; 85379; 93005; 93010; 96372; 99284; J1885